=== PATIENT | female | born 1970 | race Caucasian/White ===

== ENCOUNTER → 2022-07-18 09:04 | Outpatient (CLI) | payer SELFPAY ==
--- NOTE | 2022-07-18 09:13 | XR_ITS ---
FINAL REPORT CLINICAL HISTORY: ACUTE PAIN OF RIGHT PAIN FINDINGS: Three views of the right knee reveal no evidence of fracture or dislocation. The bony alignment is normal. There are mild degenerative changes. There is a small joint effusion. There is a 6 mm presumed loose body. IMPRESSION: Small joint effusion with 6 mm presumed loose body. Mild degenerative change. Reviewed, Interpreted and Dictated by Jose Gonzalez III, MD Transcribed by Luis Enrique Vazquez Authenticated and [facility]
== END ==
PROVIDERS: PCP Internal Medicine Adolescent Medicine; Visit Provider Internal Medicine Adolescent Medicine
DX: M25.561 Pain in right knee (principal)
CPT/HCPCS: 73562

== ENCOUNTER → 2022-10-14 16:29 | Outpatient (CLI) | payer OTHER, SELFPAY ==
--- NOTE | 2022-10-14 16:29 | MR_ITS ---
PROCEDURE INFORMATION: Exam: MR Right Lower Extremity Joint Without Contrast, Knee Exam date and time: 10/14/2022 4:38 PM Age: 52 years old Clinical indication: Pain; Knee; Right; Additional info: Right knee pain. Instability. No injury or trauma. TECHNIQUE: Imaging protocol: Magnetic resonance imaging of the Right lower extremity joint without contrast. Exam focused on the knee. COMPARISON: CR XR KNEE RT 3V 07/18/2022 9:20 AM FINDINGS: Bones and cartilage: There is grade IV (out of IV) full-thickness cartilage loss involving a significant portion of the medial compartment. A focal full-thickness cartilage defect involving the medial aspect of the lateral tibial plateau measures 2 mm in diameter (series 8/image 17), without underlying subchondral edema. There is grade I (out of IV) chondromalacia involving the patellofemoral joint. An osteochondral body in the anterior intercondylar notch measures approximately 5 mm. There is no acute fracture or dislocation. No aggressive bone lesions are present. Mild marginal osteophytes involve the medial and lateral joint compartments. Joint spaces: A moderate joint effusion involves the knee. Medial meniscus: The anterior horn of the medial meniscus located adjacent to the anterior root has a multi fascicular appearance with a parameniscal cyst measuring 0.5 x 1 x 1.2 cm (AP, ML, CC), as measured on series 4/image 13 and series 8/image 9. Anatomic variation favored over tearing. The medial meniscus also demonstrates mucinous degeneration. A trace amount of fluid is present in the expected region of a popliteal cyst. Lateral meniscus: The lateral meniscus shows no evidence of tear. Anterior cruciate ligament: The anterior cruciate ligament is intact. Posterior cruciate ligament: The posterior cruciate ligament is intact. Medial capsule and supporting structures: The medial collateral ligament is intact. Lateral capsule and supporting structures: The lateral collateral ligament complex is intact. Extensor mechanism of knee: Mild tendinosis involves the patellar tendon. The quadriceps tendon is intact with a normal striated appearance. Muscles: Unremarkable. Soft tissues: There is a mild amount of edema in the subcutaneous fat. IMPRESSION: 1. Significant grade IV (out of IV) full-thickness cartilage loss involving the medial joint compartment, consistent with severe primary osteoarthritis. 2. Findings indeterminate for tearing versus anatomic variation of the anterior horn of the medial meniscus where there is an adjacent parameniscal cyst measuring 0.5 x 1 x 1.2 cm. 3. Focal 2 mm full-thickness cartilage defect involving the lateral tibial plateau. 4. Grade I chondromalacia patella. 5. Osteochondral body in the anterior intercondylar notch measuring 5 mm.
== END ==
PROVIDERS: PCP Internal Medicine Adolescent Medicine; Visit Provider Orthopaedic Surgery
DX: M25.561 Pain in right knee (principal); M23.91 Unspecified internal derangement of right knee
CPT/HCPCS: 73721

== ENCOUNTER 2023-10-22 15:56 | Emergency (ER) | payer OTHER, SELFPAY ==
[2023-10-22 15:59] VITALS: BP 143/115; PULSE 92; RESP 16; TEMP 36.6; O2SAT 100; BMI 34.7
--- NOTE | 2023-10-22 16:26 | XR_ITS ---
PROCEDURE INFORMATION: Exam: XR Right Elbow Exam date and time: 10/22/2023 4:56 PM Age: 53 years old Clinical indication: Injury or trauma; Fall; Blunt trauma (contusions or hematomas); Arm, upper; Right; Additional info: Fall, pain TECHNIQUE: Imaging protocol: Radiologic exam of the right elbow. Views: 3 or more views. COMPARISON: CR Humerus R 10/22/2023 4:54 PM FINDINGS: Bones/joints: Evaluation is limited due to limitations in patient positioning. Alignment of the elbow appears grossly normal. No definite fracture or significant arthritic change. Soft tissues: Normal. IMPRESSION: Limited evaluation of the elbow. No gross abnormality evident.
--- NOTE | 2023-10-22 16:26 | XR_ITS ---
PROCEDURE INFORMATION: Exam: XR Right Humerus Exam date and time: 10/22/2023 4:54 PM Age: 53 years old Clinical indication: Injury or trauma; Fall; Blunt trauma (contusions or hematomas); Arm, upper; Right; Additional info: Fall, pain TECHNIQUE: Imaging protocol: Radiologic exam of the right humerus. Views: 2 or more views. COMPARISON: CR XR SHOULDER RT MIN 2V 10/22/2023 4:52 PM FINDINGS: Bones/joints: Spiral fracture of the proximal diaphysis of the right humerus. There is posterolateral displacement of the distal fragment by approximately 1 shaft width. Osseous alignment is otherwise normal. No other acute fracture. Soft tissues: Normal. IMPRESSION: Displaced proximal humerus fracture
--- NOTE | 2023-10-22 16:26 | XR_ITS ---
PROCEDURE INFORMATION: Exam: XR Right Shoulder Exam date and time: 10/22/2023 4:52 PM Age: 53 years old Clinical indication: Injury or trauma; Fall; Blunt trauma (contusions or hematomas); Arm, upper; Right; Additional info: Fall, pain TECHNIQUE: Imaging protocol: Radiologic exam of the right shoulder. Views: 2 or more views. COMPARISON: No relevant prior studies available. FINDINGS: Bones/joints: Significantly displaced oblique fracture of the proximal humeral diaphysis. Acromioclavicular and glenohumeral joints appear normally aligned. No other acute fracture. Degenerative changes noted in the thoracic spine. Soft tissues: Normal. IMPRESSION: Displaced fracture of the proximal humeral diaphysis.
[2023-10-22 16:30] VITALS: BP 159/97; PULSE 79; O2SAT 100
--- NOTE | 2023-10-22 17:10 | HMH.EDGENADL ---
Discharge Plan Disposition Patient Disposition: Home, Self-Care Condition: Good Prescriptions Prescriptions: New ondansetron HCl 4 mg tablet 4 mg PO Q8H PRN (Reason: nausea and vomiting) 4 Days Qty: 12 0RF Referrals Follow up/Referrals: Wild Mauro MD [Primary Care Provider] - See instructions Activity Restrictions/Add. Instructions Additional Instructions/Restrictions: You were evaluated in the emergency department today. Take the pain medication provided to you every 6-8 hours as needed for severe pain. Keep your splint on, clean, and dry. Do not drive or operate heavy machinery while taking narcotic pain medication. Follow-up outpatient with orthopedics soon as possible. Return to the emergency department right away for any new or worsening symptoms, such as numbness and tingling in the thumb, difficulty moving the thumb, or other concerns. Clinical Impressions Clinical Impression: Closed right humeral fracture Qualifiers: Encounter type: initial encounter Humerus Location: shaft Fracture alignment: displaced Instructions Patient Instructions: DI for Fracture, DI for Humeral Fracture Discharge ED Provider: Estelle Bello General Adult HPI General Chief complaint: Extremity Injury, Upper Stated complaint: AO ,today 1530 Right shoulder injury Time Seen by Provider: 10/22/23 16:20 Mode of Arrival: Ambulatory Source of Information: Patient Limitations: No Limitations Description of Symptoms (Recalled from ER Triage Doc. by RN): Patient states she was moving a swing set when she tripped and fell hitting her right shoulder on a brick fireplace. Denies any other injury. Denies LOC. History of Present Illness HPI narrative: This patient is a 53-year-old female who denies significant past medical history presenting to the emergency department for evaluation with concern for right shoulder pain. Patient reports that she tripped over [employer] and fell directly into a fireplace with all of her weight/force into her right shoulder just prior to arrival. She did not hit her head or lose consciousness. She does not take blood thinners. She complains of significant pain to the right shoulder and limited range of motion of the right shoulder secondary to this pain. She denies any other concerns or complaints at this time. No medications taken prior to arrival. Related Data Previous Rx's Medication Instructions Recorded ondansetron HCl 4 mg tablet 4 mg PO Q8H PRN nausea and 10/22/23 vomiting 4 days #12 tabs Allergies Allergy/AdvReac Type Severity Reaction Status Date / Time NO KNOWN ALLERGIES - NKA Allergy Unknown Uncoded 09/02/23 09:22 [facility] Disclaimer: The information contained in this section may have been updated after the patient was seen, as this information can be updated by other users. Social History Smoking Status: Never smoker alcohol intake: never substance use type: other current occupational status: other Travel in the last 8 weeks: None ROS Obtained: Yes All systems reviewed & no additional complaints except as documented Physical Exam General General appearance: alert and in no apparent distress Head Head exam: atraumatic and normocephalic Eye Eye exam: Present normal appearance, PERRL and EOMI ENT ENT exam: Present normal exam, normal oropharynx, mucous membranes moist and normal external ear exam Neck Neck exam: Present normal inspection, full ROM and trachea midline; Absent tenderness Chest Chest inspection: Present normal inspection and symmetric chest wall rise; Absent tenderness Respiratory Respiratory exam: Present normal lung sounds bilaterally; Absent respiratory distress, wheezes, stridor or accessory muscle use Cardiovascular Cardiovascular exam: Present regular rate and normal rhythm Abdominal Exam Abdominal exam: Present soft; Absent distention, tenderness or guarding Extremities Exam Extremi
--- NOTE | 2023-10-22 17:46 | PC.NURSE ---
spoke with [facility] for ortho consult
--- NOTE | 2023-10-22 17:58 | PC.NURSE ---
DR [facility]
[2023-10-22 19:00] VITALS: BP 134/88; PULSE 82; O2SAT 94
[2023-10-22 19:31] VITALS: BP 114/74; PULSE 94; O2SAT 96
[2023-10-22 20:00] VITALS: BP 111/72; PULSE 91; O2SAT 94
[2023-10-22 21:20] VITALS: BP 105/74; PULSE 91; RESP 16; TEMP 36.6; O2SAT 95
== END 2023-10-22 21:24 | disposition home or self-care (01) ==
PROVIDERS: Emergency Provider Emergency Medicine; PCP Internal Medicine Adolescent Medicine
DX: S42.291A Other displaced fracture of upper end of right humerus, initial encounter for closed fracture (principal); M79.621 Pain in right upper arm; R11.0 Nausea; W01.198A Fall on same level from slipping, tripping and stumbling with subsequent striking against other object, initial encounter
CPT/HCPCS: 29105; 73030; 73060; 73080; 96372; 99284

== ENCOUNTER 2023-12-09 09:53 | Outpatient (CLI) | payer OTHER, SELFPAY ==
--- NOTE | 2023-12-09 10:01 | XR_ITS ---
FINAL REPORT CLINICAL HISTORY: lt knee pain COMPARISON: None FINDINGS: Three views of the left knee reveal no evidence of fracture or dislocation. The bony alignment is normal. There is moderate degenerative change. There is medial compartment narrowing. There is a small joint effusion. No localized soft tissue abnormality is seen. IMPRESSION: Degenerative change without acute abnormality identified. Reviewed, Interpreted and Dictated by Jose Gonzalez III, MD Transcribed by Pao Hawkins Authenticated and [facility]
== END 2023-12-09 23:59 ==
LOC: RAD 09:54
PROVIDERS: PCP Internal Medicine Adolescent Medicine; Visit Provider Orthopaedic Surgery
DX: M17.12 Unilateral primary osteoarthritis, left knee (principal)
CPT/HCPCS: 73562